=== PATIENT | female | born 1960 | race Caucasian/White ===

== ENCOUNTER 2022-06-25 13:35 | Inpatient (IN) | payer OTHER ==
[~2022-06-25] VITALS: Ht 160 cm; Wt 99.0 kg
[2022-06-25 14:43] LABS: VENOUS BASE EXCESS 5.7 (-2.0-2.0); VENOUS HCO3 33.6 MEQ/L (23.0-27.0); VENOUS O2 SATURATION 97.1 % (60.0-80.0); VENOUS PARTIAL PRESSURE CO2 69.6 mmHg (38.0-50.0); VENOUS PARTIAL PRESSURE O2 98.9 mmHg (30.0-50.0); VENOUS PH 7.302 UNITS (7.330-7.430); VENOUS STANDARD HCO3 29.6 MEQ/L; VENOUS TOTAL CO2 35.8 MEQ/L (24.0-28.0)
[2022-06-25 15:20] LABS: CK-MB VALUE MASS 1.9 NG/ML (<3.6); MB/CK RELATIVE INDEX 2.38 (< OR =4)
[2022-06-25 15:28] LABS: ALBUMIN 3.5 GM/DL (3.2-5.2); ALT/SGPT 30 U/L (12-78); BILIRUBIN,DIRECT 0.2 MG/DL (0.0-0.2); BILIRUBIN,TOTAL 0.3 MG/DL (0.2-1.0); BLOOD UREA NITROGEN 18 MG/DL (7-18); CARBON DIOXIDE LEVEL 32 MEQ/L (21-32); CHLORIDE LEVEL 103 MEQ/L (98-107); CREATININE FOR GFR 0.58 MG/DL (0.55-1.30); GLOMERULAR FILTRATION RATE > 60.0 (>45); GLUCOSE, FASTING 133 MG/DL (70-100); NT-PRO BNP 964 PG/ML (<125); POTASSIUM SERUM 4.8 MEQ/L (3.5-5.1); SODIUM LEVEL 138 MEQ/L (136-145); THYROXINE (T4) 9.4 UG/DL (4.5-12.0); TOTAL PROTEIN 6.6 GM/DL (6.4-8.2)
[2022-06-25] MEDS ORDERED: dexameTHASONE 20MG/5ML VIAL (J1100 PER 1MG) IV ONE (16:05)
[2022-06-25] MEDS: IPRATROPIUM 0.5MG/ALBUTEROL 2.5MG INH SOL UD 3ML (DUONEB) NEB SCH ×4 (16:58→20:00)
[2022-06-25] MEDS ORDERED: FUROSEMIDE 40MG/4ML VIAL (J1940) IV ONE (17:00)
[2022-06-25 17:20] LABS: BASO % 0.4 % (0.0-1.0); EOS # 0.2 10^3/uL (0.0-0.5); EOS % 2.5 % (0.0-3.0); HEMATOCRIT 31.3 % (36.0-47.0); HEMOGLOBIN 9.3 g/dl (12.0-15.5); LYMPH # 1.7 10^3/uL (1.5-5.0); LYMPH % 22.5 % (24.0-44.0); MEAN CORPUSCULAR HEMOGLOBIN 28.2 pg (27.0-33.0); MEAN CORPUSCULAR HGB CONC 29.7 g/dl (32.0-36.5); MEAN CORPUSCULAR VOLUME 94.8 fl (80.0-96.0); MONO # 0.5 10^3/uL (0.0-0.8); MONO % 7.1 % (2.0-8.0); NEUTROPHILS # 5.1 10^3/uL (1.5-8.5); NEUTROPHILS % 67.1 % (36.0-66.0); PLATELET COUNT, AUTOMATED 211 10^3/uL (150-450); WHITE BLOOD COUNT 7.6 10^3/uL (4.0-10.0)
[2022-06-25] MEDS ORDERED: BUPR150T12 PO (18:06)
[2022-06-25] MEDS ORDERED: MONT10TA97 PO (18:06)
[2022-06-25] MEDS ORDERED: METO1TAB32 PO (18:06)
[2022-06-25] MEDS ORDERED: ATOR1TAB21 PO (18:06)
[2022-06-25] MEDS ORDERED: LEXA1TAB2 PO (18:06)
[2022-06-25] MEDS ORDERED: METF-838 PO ×2 (18:06→18:33)
[2022-06-25] MEDS ORDERED: GLIM2TAB29 PO (18:06)
[2022-06-25] MEDS ORDERED: PRAM0.123 PO (18:06)
[2022-06-25] MEDS ORDERED: ELIQ5TAB PO (18:06)
[2022-06-25] MEDS ORDERED: VENTAER INH (18:06)
[2022-06-25] MEDS ORDERED: FLUT15.820 NARES (18:06)
[2022-06-25] MEDS ORDERED: TREL1AER INH (18:06)
[2022-06-25] MEDS ORDERED: MUCI1TAB18 PO (18:06)
[2022-06-25] MEDS ORDERED: ALBU2.5V10 NEB (18:06)
[2022-06-25] MEDS ORDERED: LISI5TAB11 (18:06)
[2022-06-25] MEDS ORDERED: HOME MED LIST COMPLETE! XX SCH (18:35)
[2022-06-25] MEDS ORDERED: ACETAMINOPHEN TAB 650MG DOSE (2X325MG) PO PRN (18:55)
[2022-06-25] MEDS ORDERED: guaiFENesin DM LIQ 10ML UD PO PRN (18:55)
[2022-06-25] MEDS ORDERED: LEVALBUTEROL 1.25 MG/0.5 ML CONCENTRATE NEB NEB PRN (18:55)
[2022-06-25] MEDS ORDERED: GLUCOSE 4GM CHEW TABLET PO PRN (19:15)
[2022-06-25] MEDS ORDERED: DEXTROSE 50% 50 ML SYRINGE IV PRN (19:15)
[2022-06-25] MEDS ORDERED: GLUCAGON INJ 1MG VIAL SC PRN (19:15)
[2022-06-25 19:55] LABS: INR 0.97; PROTHROMBIN TIME 13.3 SECONDS (12.7-14.5)
[2022-06-25] MEDS: ADVAIR HFA 115/21MCG INHALER INH SCH (20:00)
[2022-06-25] MEDS ORDERED: guaiFENesin ER 600 MG TAB PO SCH (21:00)
[2022-06-25] MEDS: INSULIN LISPRO (NovoLOG) PER UNIT SC SCH (21:00)
[2022-06-25 21:30] VITALS: BP 116/49
[2022-06-25] MEDS: guaiFENesin ER 600 MG TAB PO SCH (21:58)
[2022-06-25] MEDS: ATORVASTATIN 20 MG TAB PO SCH (21:59)
[2022-06-25] MEDS: buPROPion **XL** TABLET 150MG (WELLBUTRIN XL) PO SCH (21:59)
[2022-06-25] MEDS: APIXABAN 5 MG TAB (ELIQUIS) PO SCH (21:59)
[2022-06-25] MEDS: MONTELUKAST 10 MG TAB PO SCH (21:59)
[2022-06-25] MEDS: ESCITALOPRAM OXALATE 10 MG TAB (LEXAPRO) PO SCH (21:59)
[2022-06-25] MEDS: DOCUSATE SODIUM 100MG CAPSULE PO SCH (22:00)
[2022-06-25] MEDS: PRAMIPEXOLE (MIRAPEX) 0.125 MG TAB PO SCH (22:44)
[2022-06-26] MEDS: IPRATROPIUM 0.5MG/ALBUTEROL 2.5MG INH SOL UD 3ML (DUONEB) NEB SCH ×4 (01:57→20:00)
[2022-06-26 06:27] LABS: HEMATOCRIT 29.4 % (36.0-47.0); MEAN CORPUSCULAR HEMOGLOBIN 28.6 pg (27.0-33.0); MEAN CORPUSCULAR HGB CONC 30.6 g/dl (32.0-36.5); MEAN CORPUSCULAR VOLUME 93.3 fl (80.0-96.0); PLATELET COUNT, AUTOMATED 200 10^3/uL (150-450); RED BLOOD COUNT 3.15 10^6/uL (4.00-5.40); WHITE BLOOD COUNT 5.2 10^3/uL (4.0-10.0)
[2022-06-26 07:04] LABS: BLOOD UREA NITROGEN 16 MG/DL (7-18); CALCIUM LEVEL 8.9 MG/DL (8.8-10.2); CARBON DIOXIDE LEVEL 36 MEQ/L (21-32); CHLORIDE LEVEL 100 MEQ/L (98-107); CREATININE FOR GFR 0.58 MG/DL (0.55-1.30); GLOMERULAR FILTRATION RATE > 60.0 (>45); GLUCOSE, FASTING 174 MG/DL (70-100); MAGNESIUM LEVEL 2.2 MG/DL (1.8-2.4); POTASSIUM SERUM 4.7 MEQ/L (3.5-5.1); SODIUM LEVEL 138 MEQ/L (136-145)
[2022-06-26] MEDS: TIOTROPIUM INHALER/CAPSULE (SPIRIVA) INH SCH (07:52)
[2022-06-26] MEDS: ADVAIR HFA 115/21MCG INHALER INH SCH ×2 (07:52→21:11)
[2022-06-26] MEDS: methylPREDNISolone 125MG 2ML VIAL IV SCH ×2 (08:28→17:04)
[2022-06-26] MEDS: INSULIN LISPRO (NovoLOG) PER UNIT SC SCH ×4 (08:29→20:34)
[2022-06-26] MEDS: PANTOPRAZOLE 40MG TAB (PROTONIX) PO SCH (08:29)
[2022-06-26] MEDS: APIXABAN 5 MG TAB (ELIQUIS) PO SCH ×2 (08:29→20:32)
[2022-06-26] MEDS: DOCUSATE SODIUM 100MG CAPSULE PO SCH ×2 (08:29→20:32)
[2022-06-26] MEDS: guaiFENesin ER 600 MG TAB PO SCH ×2 (08:29→20:32)
[2022-06-26] MEDS: METOPROLOL SUCC *XL* 25MG TAB (TopROL *XL*) PO SCH (08:30)
[2022-06-26] MEDS: lisinopriL 5 MG TAB PO SCH (08:30)
[2022-06-26 14:00] VITALS: BP 127/68
[2022-06-26] MEDS: ESCITALOPRAM OXALATE 10 MG TAB (LEXAPRO) PO SCH (20:32)
[2022-06-26] MEDS: buPROPion **XL** TABLET 150MG (WELLBUTRIN XL) PO SCH (20:32)
[2022-06-26] MEDS: ATORVASTATIN 20 MG TAB PO SCH (20:32)
[2022-06-26] MEDS: MONTELUKAST 10 MG TAB PO SCH (20:32)
[2022-06-26] MEDS: PRAMIPEXOLE (MIRAPEX) 0.125 MG TAB PO SCH (20:32)
[2022-06-26] MEDS ORDERED: AZITHROMYCIN INJ 500 MG, VIAL MATE ADAPTER 1 EACH in NS 250 ML IV SCH (21:00)
[2022-06-26 21:04] VITALS: BP 117/76
[2022-06-26 23:14] VITALS: O2SAT 96
[2022-06-27] MEDS: methylPREDNISolone 125MG 2ML VIAL IV SCH ×3 (00:17→17:07)
[2022-06-27] MEDS: IPRATROPIUM 0.5MG/ALBUTEROL 2.5MG INH SOL UD 3ML (DUONEB) NEB SCH ×4 (01:33→19:30)
[2022-06-27 06:01] LABS: HEMATOCRIT 29.6 % (36.0-47.0); HEMOGLOBIN 8.8 g/dl (12.0-15.5); MEAN CORPUSCULAR HEMOGLOBIN 27.4 pg (27.0-33.0); MEAN CORPUSCULAR HGB CONC 29.7 g/dl (32.0-36.5); MEAN CORPUSCULAR VOLUME 92.2 fl (80.0-96.0); PLATELET COUNT, AUTOMATED 235 10^3/uL (150-450); RED BLOOD COUNT 3.21 10^6/uL (4.00-5.40); WHITE BLOOD COUNT 7.1 10^3/uL (4.0-10.0)
[2022-06-27 06:25] VITALS: BP 108/58
[2022-06-27 06:38] LABS: BLOOD UREA NITROGEN 24 MG/DL (7-18); CALCIUM LEVEL 8.9 MG/DL (8.8-10.2); CARBON DIOXIDE LEVEL 33 MEQ/L (21-32); CHLORIDE LEVEL 102 MEQ/L (98-107); CREATININE FOR GFR 0.55 MG/DL (0.55-1.30); GLOMERULAR FILTRATION RATE > 60.0 (>45); GLUCOSE, FASTING 238 MG/DL (70-100); MAGNESIUM LEVEL 2.3 MG/DL (1.8-2.4); POTASSIUM SERUM 4.9 MEQ/L (3.5-5.1); SODIUM LEVEL 138 MEQ/L (136-145)
[2022-06-27] MEDS: ADVAIR HFA 115/21MCG INHALER INH SCH ×2 (07:46→19:31)
[2022-06-27] MEDS: TIOTROPIUM INHALER/CAPSULE (SPIRIVA) INH SCH (07:46)
[2022-06-27] MEDS: APIXABAN 5 MG TAB (ELIQUIS) PO SCH ×2 (08:56→20:39)
[2022-06-27] MEDS: PANTOPRAZOLE 40MG TAB (PROTONIX) PO SCH (08:56)
[2022-06-27] MEDS: DOCUSATE SODIUM 100MG CAPSULE PO SCH ×2 (08:56→20:49)
[2022-06-27] MEDS: guaiFENesin ER 600 MG TAB PO SCH ×2 (08:56→20:40)
[2022-06-27] MEDS: INSULIN LISPRO (NovoLOG) PER UNIT SC SCH ×4 (08:56→20:39)
[2022-06-27] MEDS: METOPROLOL SUCC *XL* 25MG TAB (TopROL *XL*) PO SCH (08:58)
[2022-06-27] MEDS: lisinopriL 5 MG TAB PO SCH (09:42)
[2022-06-27] MEDS: AZITHROMYCIN 250MG TABLET PO SCH (12:53)
[2022-06-27 14:00] VITALS: BP 117/67
[2022-06-27 20:28] VITALS: BP 119/67
[2022-06-27] MEDS: PRAMIPEXOLE (MIRAPEX) 0.125 MG TAB PO SCH (20:39)
[2022-06-27] MEDS: ESCITALOPRAM OXALATE 10 MG TAB (LEXAPRO) PO SCH (20:39)
[2022-06-27] MEDS: ATORVASTATIN 20 MG TAB PO SCH (20:39)
[2022-06-27] MEDS: MONTELUKAST 10 MG TAB PO SCH (20:40)
[2022-06-27] MEDS: buPROPion **XL** TABLET 150MG (WELLBUTRIN XL) PO SCH (20:40)
[2022-06-27] MEDS ORDERED: MATE ADAPTER IV SCH (21:00)
[2022-06-27] MEDS ORDERED: NS IV SCH (21:00)
[2022-06-27] MEDS ORDERED: AZITHROMYCIN IV SCH (21:00)
[2022-06-28] VITALS (7 sets, daily range): BP systolic 97–142; BP diastolic 60–92; O2SAT 92–96
[2022-06-28] MEDS: methylPREDNISolone 125MG 2ML VIAL IV SCH ×2 (00:37→08:20)
[2022-06-28] MEDS: IPRATROPIUM 0.5MG/ALBUTEROL 2.5MG INH SOL UD 3ML (DUONEB) NEB SCH ×2 (01:28→07:43)
[2022-06-28 06:27] LABS: HEMATOCRIT 31.3 % (36.0-47.0); HEMOGLOBIN 9.2 g/dl (12.0-15.5); MEAN CORPUSCULAR HEMOGLOBIN 27.4 pg (27.0-33.0); MEAN CORPUSCULAR HGB CONC 29.4 g/dl (32.0-36.5); MEAN CORPUSCULAR VOLUME 93.2 fl (80.0-96.0); PLATELET COUNT, AUTOMATED 269 10^3/uL (150-450); RED BLOOD COUNT 3.36 10^6/uL (4.00-5.40); WHITE BLOOD COUNT 8.1 10^3/uL (4.0-10.0)
[2022-06-28 06:48] LABS: BLOOD UREA NITROGEN 24 MG/DL (7-18); CALCIUM LEVEL 9.4 MG/DL (8.8-10.2); CARBON DIOXIDE LEVEL 34 MEQ/L (21-32); CHLORIDE LEVEL 99 MEQ/L (98-107); CREATININE FOR GFR 0.71 MG/DL (0.55-1.30); GLOMERULAR FILTRATION RATE > 60.0 (>45); GLUCOSE, FASTING 249 MG/DL (70-100); MAGNESIUM LEVEL 2.3 MG/DL (1.8-2.4); POTASSIUM SERUM 4.9 MEQ/L (3.5-5.1); SODIUM LEVEL 137 MEQ/L (136-145)
[2022-06-28] MEDS: TIOTROPIUM INHALER/CAPSULE (SPIRIVA) INH SCH (07:43)
[2022-06-28] MEDS: ADVAIR HFA 115/21MCG INHALER INH SCH ×2 (07:43→19:21)
[2022-06-28] MEDS: APIXABAN 5 MG TAB (ELIQUIS) PO SCH ×2 (08:17→20:16)
[2022-06-28] MEDS: DOCUSATE SODIUM 100MG CAPSULE PO SCH ×2 (08:17→20:16)
[2022-06-28] MEDS: PANTOPRAZOLE 40MG TAB (PROTONIX) PO SCH (08:18)
[2022-06-28] MEDS: AZITHROMYCIN 250MG TABLET PO SCH (08:18)
[2022-06-28] MEDS: guaiFENesin ER 600 MG TAB PO SCH ×2 (08:19→20:16)
[2022-06-28] MEDS: METOPROLOL SUCC *XL* 25MG TAB (TopROL *XL*) PO SCH (08:19)
[2022-06-28] MEDS: lisinopriL 5 MG TAB PO SCH (08:19)
[2022-06-28] MEDS: INSULIN LISPRO (NovoLOG) PER UNIT SC SCH ×4 (08:20→20:15)
[2022-06-28] MEDS ORDERED: FUROSEMIDE 20MG/2ML VIAL (J1940) IV ONE (12:15)
[2022-06-28] MEDS: IPRATROPIUM 0.5MG/ALBUTEROL 2.5MG INH SOL UD 3ML (DUONEB) NEB PRN ×2 (14:24→19:21)
[2022-06-28] MEDS: predniSONE 20 MG TAB PO SCH (15:19)
[2022-06-28] MEDS: ESCITALOPRAM OXALATE 10 MG TAB (LEXAPRO) PO SCH (20:15)
[2022-06-28] MEDS: PRAMIPEXOLE (MIRAPEX) 0.125 MG TAB PO SCH (20:15)
[2022-06-28] MEDS: ATORVASTATIN 20 MG TAB PO SCH (20:16)
[2022-06-28] MEDS: buPROPion **XL** TABLET 150MG (WELLBUTRIN XL) PO SCH (20:16)
[2022-06-28] MEDS: MONTELUKAST 10 MG TAB PO SCH (20:16)
[2022-06-28] MEDS ORDERED: LEVEMIR (INSULIN DETEMIR) 1 UNITS/0.01ML SC ONE (21:00)
[2022-06-29] MEDS: IPRATROPIUM 0.5MG/ALBUTEROL 2.5MG INH SOL UD 3ML (DUONEB) NEB PRN ×2 (01:11→07:42)
[2022-06-29 05:50] VITALS: BP 105/62
[2022-06-29 06:22] LABS: HEMATOCRIT 29.3 % (36.0-47.0); HEMOGLOBIN 8.7 g/dl (12.0-15.5); MEAN CORPUSCULAR HEMOGLOBIN 28.2 pg (27.0-33.0); MEAN CORPUSCULAR HGB CONC 29.7 g/dl (32.0-36.5); MEAN CORPUSCULAR VOLUME 94.8 fl (80.0-96.0); PLATELET COUNT, AUTOMATED 288 10^3/uL (150-450); RED BLOOD COUNT 3.09 10^6/uL (4.00-5.40); WHITE BLOOD COUNT 10.6 10^3/uL (4.0-10.0)
[2022-06-29 07:00] LABS: BLOOD UREA NITROGEN 27 MG/DL (7-18); CALCIUM LEVEL 9.2 MG/DL (8.8-10.2); CARBON DIOXIDE LEVEL 34 MEQ/L (21-32); CHLORIDE LEVEL 100 MEQ/L (98-107); CREATININE FOR GFR 0.74 MG/DL (0.55-1.30); GLOMERULAR FILTRATION RATE > 60.0 (>45); GLUCOSE, FASTING 158 MG/DL (70-100); MAGNESIUM LEVEL 2.4 MG/DL (1.8-2.4); POTASSIUM SERUM 4.3 MEQ/L (3.5-5.1); SODIUM LEVEL 139 MEQ/L (136-145)
[2022-06-29] MEDS: TIOTROPIUM INHALER/CAPSULE (SPIRIVA) INH SCH (07:41)
[2022-06-29] MEDS: ADVAIR HFA 115/21MCG INHALER INH SCH (07:42)
[2022-06-29] MEDS: INSULIN LISPRO (NovoLOG) PER UNIT SC SCH ×2 (08:19→12:16)
[2022-06-29] MEDS: predniSONE 20 MG TAB PO SCH (08:19)
[2022-06-29] MEDS: DOCUSATE SODIUM 100MG CAPSULE PO SCH (08:19)
[2022-06-29] MEDS: AZITHROMYCIN 250MG TABLET PO SCH (08:20)
[2022-06-29] MEDS: APIXABAN 5 MG TAB (ELIQUIS) PO SCH (08:20)
[2022-06-29] MEDS: guaiFENesin ER 600 MG TAB PO SCH (08:20)
[2022-06-29] MEDS: PANTOPRAZOLE 40MG TAB (PROTONIX) PO SCH (08:20)
[2022-06-29 08:22] VITALS: BP 122/83
[2022-06-29] MEDS: METOPROLOL SUCC *XL* 25MG TAB (TopROL *XL*) PO SCH (08:22)
[2022-06-29] MEDS: lisinopriL 5 MG TAB PO SCH (08:22)
[2022-06-29] MEDS ORDERED: PRED20TA PO ×2 (11:36→12:52)
[2022-06-29] MEDS ORDERED: AZIT-12 PO ×2 (11:36→12:52)
== END 2022-06-29 14:18 | disposition home or self-care (01) | DRG 140 ==
LOC: M ED 13:35 → M ED INP 18:54 → M MSPAV 21:28
PROVIDERS: ADMIT Family Medicine; ATTEND Student in an Organized Health Care Education/Training Program
DX: J44.0 Chronic obstructive pulmonary disease with (acute) lower respiratory infection (principal); J12.9 Viral pneumonia, unspecified; I27.20 Pulmonary hypertension, unspecified; I11.0 Hypertensive heart disease with heart failure; I50.32 Chronic diastolic (congestive) heart failure; I48.91 Unspecified atrial fibrillation; G25.81 Restless legs syndrome; E11.9 Type 2 diabetes mellitus without complications; E78.5 Hyperlipidemia, unspecified; F32.A Depression, unspecified; F41.9 Anxiety disorder, unspecified; Z79.4 Long term (current) use of insulin; Z79.01 Long term (current) use of anticoagulants; G47.30 Sleep apnea, unspecified; Z88.2 Allergy status to sulfonamides; Z88.5 Allergy status to narcotic agent; Z79.899 Other long term (current) drug therapy; J44.1 Chronic obstructive pulmonary disease with (acute) exacerbation